=== PATIENT | female | born 1995 | race Caucasian/White ===

== ENCOUNTER 2017-05-23 16:30 | Emergency (ER) | payer OTHER ==
[~2017-05-23] VITALS: Ht 165.1 cm; Wt 65.7 kg
[2017-05-23 16:38] VITALS: TEMP 36.9; Ht 165.1 cm; Wt 65.7 kg
[2017-05-23] MEDS ORDERED: VNTHFA/IN INH (16:47)
[2017-05-23] MEDS ORDERED: LORAZEPAM 1 MG TAB SL STA (16:50)
--- NOTE | 2017-05-23 17:01 | EMERGENCY ROOM VISIT NOTE ---
History Report prepared by Kori: Osbaldo Acosta Under the Supervision of: Dr. Quinn Escoto M.D. First contact with patient: 16:45 Chief Complaint: HEADACHE Stated Complaint: HEADACHE, TIGHT CHEST History of Present Illness The patient is a 22 year old female who presents to the Emergency Room with complaints of persistent anxiety beginning one hour ago. She has a history of anxiety, and has been struggling with it for the past several years. She states that her increased anxiety is due to "personal problems". The patient denies SI. She has been admitted to an inpatient psychiatric facility before in the past with her most recent stay occurring a few months ago. She notes that she has attempted suicide in the past by overdose. The patient notes that she has not been taking her prescribed medication for several months. She notes that she moved to this area about a month ago--she is currently staying in a [facility] [place] [facility]. She denies any recent fevers, cough, or cold-like symptoms. Source of History: patient Onset: One hour ago Quality: other (anxiety) Timing: other (persistent) Associated Symptoms: No fevers, No cough Note: The patient denies cold-like symptoms. Review of Systems See HPI for pertinent positives & negatives. A total of 10 systems reviewed and were otherwise negative. Past Medical & Surgical Medical Problems: (1) Anxiety (2) Asthma Family History No pertinent family history stated. Social History Smoking Status: Never Smoker Occupation Status: employed Current/Historical Medications Scheduled Divalproex Sodium (Depakote Er), 1 TAB PO HS Scheduled PRN Albuterol Hfa (Ventolin Hfa), 2-4 PUFFS INH BID PRN for SOB/Wheezing Hydroxyzine Pamoate (Vistaril), 25 MG PO Q6 PRN for Anxiety/Agitation Allergies Coded Allergies: Sulfamethoxazole w/Trimethoprim (Unverified Adverse Reaction, Intermediate , VOMIT, 05/23/17) Physical Exam Vital Signs Date Time Temp Pulse Resp B/P (MAP) Pulse Ox O2 Delivery O2 Flow Rate FiO2 05/23/17 18:30 82 20 115/76 96 Room Air 05/23/17 16:38 36.9 91 20 110/78 96 Room Air Physical Exam GENERAL: Patient is in no acute distress. HEENT: No acute trauma, normocephalic atraumatic, mucous membranes moist, no nasal congestion, no scleral icterus. NECK: No stridor, no adenopathy, no meningismus, trachea is midline. LUNGS: Clear to auscultation bilaterally, no wheeze, no rhonchi, breath sounds equal. HEART: Without murmurs gallops or rubs, regular rate and rhythm. ABDOMEN: Soft, nontender, bowel sounds positive, no hernias, no peritonitis. EXTREMITIES: No cyanosis or edema, full range of motion of all the joints without pain or difficulty, no signs for acute trauma. NEUROLOGIC: Oriented x 3, no acute motor or sensory deficits, no focal weakness. SKIN: No rash, no jaundice, no diaphoresis. PSYCH: Cooperative. Denies SI. Admits anxiety. Currently voluntary. Medical Decision & Procedures Laboratory Results 05/23/17 17:47 05/23/17 17:47 Test 05/23/17 17:15 05/23/17 17:47 Urine Color YELLOW Urine Appearance CLOUDY (CLEAR) Urine pH 7.5 (4.5-7.5) Urine Specific [place] 1.025 (1.000-1.030) Urine Protein NEG (NEG) Urine Glucose (UA) NEG (NEG) Urine Ketones NEG (NEG) Urine Occult Blood NEG (NEG) Urine Nitrite NEG (NEG) Urine Bilirubin NEG (NEG) Urine Urobilinogen NEG (NEG) Urine Leukocyte Esterase MODERATE (NEG) Urine WBC (Auto) 10-30 /hpf (0-5) Urine RBC (Auto) 0-4 /hpf (0-4) Urine Hyaline Casts (Auto) 1-5 /lpf (0-5) Urine Epithelial Cells (Auto) >30 /lpf (0-5) Urine Bacteria (Auto) 2+ (NEG) Urine Renal Epithelial Cells 5-10 /lpf (0-5) Urine Opiates Screen NEG (NEG) Urine Methadone, Qualitative NEG (NEG) Urine Barbiturates NEG (NEG) Urine Phencyclidine (PCP) Level NEG (NEG) Ur Amphetamine/Methamphetamine NEG (NEG) MDMA (Ecstasy) Screen NEG (NEG) Urine Benzodiazepines Screen NEG (NEG) Urine Cocaine Metabolite NEG (NEG) Urine Marijuana (THC) POS (NEG) Red Blood Count 4.86 M/uL (4.2-5.4) Mean Corpuscular Volume 89.5 fL (80-100) Mean Corpuscular Hemoglobin 30.0 pg (25-34) Mean Corpuscular Hemoglobin Concent 33.6 g/dl (32-36) RDW Standard Deviation 45.7 fL (36.4-46.3) RDW Coefficient of Variation 13.9 % (11.5-14.5) Mean Platelet Volume 9.8 fL (7.4-10.4) Anion Gap 5.0 mmol/L (3-11) Est Creatinine Clear Calc Drug Dose 85.8 ml/min Estimated GFR () 102.3 Estimated GFR (Non- 88.3 BUN/Creatinine Ratio 16.2 (10-20) Calcium Level 9.6 mg/dl (8.5-10.1) Total Bilirubin 0.4 mg/dl (0.2-1) Aspartate Amino Transf (AST/SGOT) 17 U/L (15-37) Alanine Aminotransferase (ALT/SGPT) 18 U/L (12-78) Alkaline Phosphatase 43 U/L (45-117) Total Protein 8.5 gm/dl (6.4-8.2) Albumin 4.3 gm/dl (3.4-5.0) Globulin 4.2 gm/dl (2.5-4.0) Albumin/Globulin Ratio 1.0 (0.9-2) Thyroid Stimulating Hormone (TSH) 0.513 uIu/ml (0.300-4.500) Human Chorionic Gonadotropin, Qual NEG (NEG) Salicylates Level < 1.7 mg/dl (2.8-20) Acetaminophen Level < 2 ug/ml (10-30) Ethyl Alcohol mg/dL < 3.0 mg/dl (0-3) Laboratory results reviewed by me. Medications Administered Medications (Trade) Dose Ordered Sig/Dashawn Route Start Time Stop Time Status Last Admin Dose Admin Lorazepam (Ativan Tab) 1 mg NOW STAT SL 05/23/17 16:50 05/23/17 16:52 DC 05/23/17 17:12 1 MG ED Course 1647: The patient was evaluated in room B5. A complete history and physical exam was performed. 1650: Ordered Ativan Tab 1 mg SL. 1730: I discussed the patients case with the psychiatric casework supervisor. 1830: I spoke with the casework supervisor. She has had a lengthy discussion with the patient. She feels that the patient should stay in the hospital due to concerns of self-harm if discharged. 1840: The patient was moved to room A7 193: I spoke with the casework supervisor. A referral was placed with [facility]. The patient will be evaluated by fermin. 2030: The patient has agreed to discharge home. She will return for worsening symptoms. Discharge instructions were given verbally and on paper. Medical Decision The patient is a 22 year old female who presents to the ED with complaints of headache. Differential diagnoses considered include medication noncompliance, anxiety, depression, situational anxiety, SI, electrolyte imbalance and thyroid disorder. There is no leukocytosis or concerning anemia. No significant electrolyte abnormality, kidney failure, hepatitis. The patient appears to be in a euthyroid state. testing is negative. Urinalysis shows contamination , no obvious infection. Urine tox shows marijuana. Aspirin, Tylenol and alcohol levels were undetectable. The patient presented initially with a headache and then changed her complaint to anxiety. She denied being suicidal. She was willing to be seen by the psychiatry team. The patient was evaluated by the psychiatry services, she does not meet criteria for an inpatient stay. The patient feels safe with discharge home and has decided that she does not want to stay in the hospital. She has agreed to outpatient treatment. Suggestions by psychiatry were made, the patient is to restart her Depakote and will be prescribed Vistaril for acute anxiety. She has agreed to return to this ER if feeling suicidal or worsening. She has contracted for safety. Upon discharge, the patient asked if she could have urine GC and chlamydia testing done. She did not want a pelvic exam. This test was ordered, she can call for the results. She was concerned as she had unprotected sex about a month ago. Medication Reconcilliation Current Medication List: was personally reviewed by me Blood Pressure Screening Patient's blood pressure: Normal blood pressure Blood pressure disposition: Did not require urgent referral Impression Primary Impression: Anxiety Additional Impression: Suicidal ideation Scribe Attestation The scribe's documentation has been prepared under my direction and personally reviewed by me in its entirety. I confirm that the note above accurately reflects all work, treatment, procedures, and medical decision making performed by me. Departure Information Dispostion Home / Self-Care Prescriptions Hydroxyzine Pamoate (VISTARIL) 25 Mg Cap 25 MG PO Q6 Y for Anxiety/Agitation, #12 CAP Prov: Quinn Escoto M.D. 05/23/17 Divalproex Sodium (DEPAKOTE ER) 250 Mg Tab 1 TAB PO HS, #21 TAB 2 Refills take 1 tab daily for 1 week and then start 2 tab daily Prov: Quinn Escoto M.D. 05/23/17 Referrals No Doctor, Assigned (PCP) Patient Instructions My [facility] Problem Qualifiers
[2017-05-23 17:31] LABS: URINE APPEARANCE CLOUDY (CLEAR); URINE BILIRUBIN NEG (NEG); URINE COLOR YELLOW; URINE EPITHELIAL CELL AUTO >30 /lpf (0-5); URINE NITRITE NEG (NEG); URINE PH 7.5 (4.5-7.5); URINE SPECIFIC GRAVITY 1.025 (1.000-1.030); UROBILINOGEN NEG (NEG); ZZUR CULT IF INDIC CLEAN CATCH YES
[2017-05-23 17:35] LABS: MANUAL MICROSCOPIC REQUIRED? NO; REVIEW REQ? YES
[2017-05-23 18:00] LABS: BENZODIAZEPINE, URINE NEG (NEG); COCAINE,URINE NEG (NEG); PHENCYCLIDINE, URINE NEG (NEG)
[2017-05-23 18:06] LABS: HEMATOCRIT 43.5 % (37-47); MEAN CELL VOLUME 89.5 fL (80-100); MEAN CORPUSCULAR HGB CONC 33.6 g/dl (32-36); MEAN PLATELET VOLUME 9.8 fL (7.4-10.4); PLATELET COUNT 286 K/uL (130-400); RED BLOOD COUNT 4.86 M/uL (4.2-5.4); WHITE BLOOD COUNT 9.94 K/uL (4.8-10.8)
[2017-05-23 18:28] LABS: ACETAMINOPHEN < 2 ug/ml (10-30); BUN/CREATININE RATIO 16.2 (10-20); CALCIUM 9.6 mg/dl (8.5-10.1); CREATININE 0.91 mg/dl (0.60-1.20)
[2017-05-23 18:29] LABS: PREG INTERNAL NEGATIVE QC NEG CLEAR BACKGROUND; PREG INTERNAL POSITIVE QC POS CONTROL LINE
[2017-05-23 18:42] LABS: THYROID STIMULATING HORMONE 0.513 uIu/ml (0.300-4.500)
[2017-05-23] MEDS ORDERED: DIVA250T PO (20:26)
[2017-05-23] MEDS ORDERED: HYDR1CAP85 PO (20:26)
--- NOTE | 2017-05-23 21:05 | EMERGENCY ROOM VISIT NOTE ---
ED Visit Note Received this patient signout. Patient is requesting a pelvic exam. She denies being suicidal or homicidal.
[2017-05-23] MEDS ORDERED: DOXYCYCLINE HYCLATE 100 MG CAP PO STA (21:26)
[2017-05-23] MEDS ORDERED: METRONIDAZOLE 250 MG TAB PO STA (21:26)
[2017-05-23] MEDS ORDERED: CEFTRIAXONE SOD 350MG/ML 1 GM VIAL IM STA (21:26)
[2017-05-23] MEDS ORDERED: AZITHROMYCIN 250 MG TAB PO STA (21:26)
[2017-05-23] MEDS ORDERED: METR-163 PO (21:29)
[2017-05-23] MEDS ORDERED: DOXY100C76 PO (21:29)
[2017-05-23 21:55] VITALS: BP 129/88; PULSE 106; O2SAT 96
[2017-05-27 07:51] LABS: CHLAMYDIA TRACH RNA*** NOT DETECTED (NOT DETECTED); GC (NEIS GONORRHOEAE)RNA** NOT DETECTED (NOT DETECTED)
== END 2017-05-23 22:18 | disposition home or self-care (01) ==
LOC: C.EDB 16:32 → C.EDA 22:18
DX: F41.9 Anxiety disorder, unspecified (principal); Z91.5 Personal history of self-harm; J45.909 Unspecified asthma, uncomplicated

== ENCOUNTER 2017-06-19 10:31 | Emergency (ER) | payer OTHER ==
[~2017-06-19] VITALS: Ht 167.6 cm; Wt 66.1 kg
[~2017-06-19 10:31] MED LIST: DIVA250T PO; VNTHFA/IN INH
[2017-06-19 10:51] VITALS: TEMP 37.4; Ht 167.6 cm; Wt 66.1 kg
[2017-06-19] MEDS ORDERED: SODIUM CHLORIDE 0.9% 1000ML 1,000 ML IV STA (11:21)
[2017-06-19] MEDS ORDERED: KETOROLAC TROMETHAMINE 30 MG/ML VIAL IV STA (11:21)
[2017-06-19] MEDS ORDERED: DIAZEPAM INJ 5 MG/ML 2 ML CARP IV STA (11:21)
--- NOTE | 2017-06-19 11:21 | EMERGENCY ROOM VISIT NOTE ---
History First contact with patient: 11:04 Chief Complaint: FLU LIKE SX Stated Complaint: FEVER, SOB, NECK/BACK PAIN History of Present Illness The patient is a 22 year old female who presents to the Emergency Room with complaints of fever, dyspnea, and neck and back pain which began yesterday. The patient states the past few days, she has been experiencing some nasal congestion. She states yesterday, she "began feeling real sick". Patient states she had nausea, headache, chills, severe neck pain, diffuse pain, diarrhea, as well as the congestion. The patient states this morning, she noticed she was running a fever of 100.9F. She has taken 3 doses of Tylenol and congestion medication for the symptoms without improvement. She denies any abdominal pain, cough, coughing up sputum, rhinorrhea, otalgia, sore throat, or swollen glands. She states she does feel some chest tightness when she is breathing, does report a history of asthma. She has been using her albuterol inhalers, which she states helps only minimally. The patient does have a history of meningitis, and states this illness began with similar symptoms, however that time she experienced a sore throat first. The patient states when she was sick with meningitis, her symptoms are significantly worse than they are now. Review of Systems A complete 10 point review of systems was reviewed with the patient with pertinent positives and negatives as per history of present illness. All else were negative. Past Medical/Surgical History Medical Problems: (1) Anxiety (2) Asthma Social History Smoking Status: Never Smoker Smokeless Tobacco Use: No Alcohol Use: none Drug Use: none Marital Status: single Housing Status: lives with family Occupation Status: employed Current/Historical Medications Scheduled Acetaminophen (Tylenol), 325 MG PO UD Cyclobenzaprine Hcl (Flexeril), 5-10 MG PO TID Divalproex Sodium (Depakote Er), 1 TAB PO HS Scheduled PRN Albuterol Hfa (Ventolin Hfa), 2-4 PUFFS INH BID PRN for SOB/Wheezing Physical Exam Vital Signs Date Time Temp Pulse Resp B/P (MAP) Pulse Ox O2 Delivery O2 Flow Rate FiO2 06/19/17 13:03 99 16 122/79 99 Room Air 06/19/17 12:21 94 06/19/17 11:58 103 16 136/75 98 Room Air 06/19/17 11:58 98 Room Air 1/18/18 10:51 37.4 116 16 109/74 95 Room Air Physical Exam VITALS: Vitals are noted on the nurse's note and reviewed by myself. Vital signs stable. GENERAL: This is a 22-year-old white female, in no acute distress, nondiaphoretic, well-developed well-nourished. SKIN: The skin was without rashes, erythema, edema, or bruising. There is no tenting of the skin. Capillary reflex less than 2 seconds. HEAD: Normocephalic atraumatic. EARS: External auditory canals clear, tympanic membranes pearly brown without erythema or effusion bilaterally. EYES: Pupils equal round and reactive to light and accommodation. Conjunctivae without injection, sclerae without icterus. Extraocular movements intact. NOSE: Patent, turbinates with mild inflammation and watery discharge. No sinus tenderness. MOUTH: Mucous membranes moist. Tonsils are not enlarged. Pharynx without erythema or exudate. Uvula midline. Airway patent. Tongue does not deviate. NECK: Supple without nuchal rigidity. No lymphadenopathy. No thyromegaly. Cervical spine is nontender. No JVD. HEART: Regular rate and rhythm without murmurs gallops or rubs. LUNGS: Slightly diminished diffusely, but clear to auscultation bilaterally without wheezes, rales or rhonchi. No dullness to percussion. No retractions or accessory muscle use. ABDOMEN: Positive bowel sounds x 4. Normal tympanic percussion. Soft, nontender, without masses or organomegaly. Grover sign negative. No guarding or rebound tenderness. MUSCULOSKELETAL: No nuchal rigidity noted. The patient does have tenderness with all motion and palpation of the musculature in the neck. Motion did improve with Toradol and Valium. No muscle atrophy, erythema, or edema noted. Full range of motion without joint tenderness in all extremities. No tenderness to palpation. Normal gait. Strength 5/5 throughout. NEURO: Patient was alert and oriented to person place and time. Normal sensation to light and sharp touch. Deep tendon reflexes 2+ throughout. No focal neurological deficits. Medical Decision & Procedures ER Provider Diagnostic Interpretation: CBC is without leukocytosis, anemia, thrombocytopenia. CMP without significant renal, hepatic, or electrolyte abnormalities. Lyme disease testing was negative. Influenza testing was negative. The patient was unable to provide a urine specimen while here in the emergency department. CHEST 2 VIEWS ROUTINE CLINICAL HISTORY: cough, dyspnea dyspnea COMPARISON STUDY: No previous studies for comparison. FINDINGS: The bones soft tissues and hemidiaphragms are normal. The cardiomediastinal silhouette is normal. The lungs are clear. The pulmonary vasculature is normal. IMPRESSION: Negative chest. The above report was generated using voice recognition software. It may contain grammatical, syntax or spelling errors. Electronically signed by: Eduardo Padilla M.D. 06/19/2017 1:36 PM Dictated Date/Time: 06/19/2017 1:36 PM Laboratory Results 06/19/17 11:30 Red Blood Count 4.79, Mean Corpuscular Volume 89.4, Mean Corpuscular Hemoglobin 30.1, Mean Corpuscular Hemoglobin Concent 33.6, Mean Platelet Volume 9.9, Neutrophils (%) (Auto) 73.1, Lymphocytes (%) (Auto) 14.1, Monocytes (%) (Auto) 10.2, Eosinophils (%) (Auto) 1.7, Basophils (%) (Auto) 0.7, Neutrophils # (Auto ) 6.43, Lymphocytes # (Auto) 1.24, Monocytes # (Auto) 0.90, Eosinophils # (Auto ) 0.15, Basophils # (Auto) 0.06 06/19/17 11:30 Test 06/19/17 11:20 06/19/17 11:30 06/19/17 11:40 Influenza Type A Antigen Neg for Influ A (NEG) Influenza Type B Antigen Neg for Influ B (NEG) White Blood Count 8.80 K/uL (4.8-10.8) Red Blood Count 4.79 M/uL (4.2-5.4) Hemoglobin 14.4 g/dL (12.0-16.0) Hematocrit 42.8 % (37-47) Mean Corpuscular Volume 89.4 fL (80-100) Mean Corpuscular Hemoglobin 30.1 pg (25-34) Mean Corpuscular Hemoglobin Concent 33.6 g/dl (32-36) Platelet Count 282 K/uL (130-400) Mean Platelet Volume 9.9 fL (7.4-10.4) Neutrophils (%) (Auto) 73.1 % Lymphocytes (%) (Auto) 14.1 % Monocytes (%) (Auto) 10.2 % Eosinophils (%) (Auto) 1.7 % Basophils (%) (Auto) 0.7 % Neutrophils # (Auto) 6.43 K/uL (1.4-6.5) Lymphocytes # (Auto) 1.24 K/uL (1.2-3.4) Monocytes # (Auto) 0.90 K/uL (0.11-0.59) Eosinophils # (Auto) 0.15 K/uL (0-0.5) Basophils # (Auto) 0.06 K/uL (0-0.2) RDW Standard Deviation 47.7 fL (36.4-46.3) RDW Coefficient of Variation 14.5 % (11.5-14.5) Immature Granulocyte % (Auto) 0.2 % Immature Granulocyte # (Auto) 0.02 K/uL (0.00-0.02) Anion Gap 8.0 mmol/L (3-11) Est Creatinine Clear Calc Drug Dose 104.0 ml/min Estimated GFR () 123.3 Estimated GFR (Non- 106.4 BUN/Creatinine Ratio 12.1 (10-20) Calcium Level 9.1 mg/dl (8.5-10.1) Total Bilirubin 0.5 mg/dl (0.2-1) Aspartate Amino Transf (AST/SGOT) 17 U/L (15-37) Alanine Aminotransferase (ALT/SGPT) 17 U/L (12-78) Alkaline Phosphatase 41 U/L (45-117) Total Protein 8.3 gm/dl (6.4-8.2) Albumin 4.1 gm/dl (3.4-5.0) Globulin 4.2 gm/dl (2.5-4.0) Albumin/Globulin Ratio 1.0 (0.9-2) Lyme Disease IgG Antibody NEG (NEG) Lyme Disease IgM Antibody NEG (NEG) Lactic Acid Level 0.8 mmol/L (0.4-2.0) Medications Administered Medications (Trade) Dose Ordered Sig/Dashawn Route Start Time Stop Time Status Last Admin Dose Admin Sodium Chloride 1,000 ml @ 999 mls/hr Q1H1M STAT IV 06/19/17 11:21 06/19/17 12:21 DC 06/19/17 12:09 999 MLS/HR Ketorolac Tromethamine (Toradol Inj) 30 mg NOW STAT IV 06/19/17 11:21 06/19/17 11:25 DC 06/19/17 12:09 30 MG Diazepam (Valium Inj) 2 mg NOW STAT IV 06/19/17 11:21 06/19/17 11:25 DC 06/19/17 12:09 2 MG ECG Indication: SOB/dyspnea, tachycardia Rate (beats per minute): 99 Rhythm: normal sinus Findings: no acute ischemic change Comparison ECG Date: no prior available ED Course The patient was seen and evaluated as above. IV access obtained, labs drawn. The patient was given 30 mg Toradol and 2 mg Valium IV. Labs and imaging were reviewed. I discussed the case with Dr. Escoto. Dr. Escoto did see and evaluate the patient independently. I discussed all findings with the patient at bedside. Based on her neck pain, I do suspect musculoskeletal etiology, however with her history of meningitis, she was offered lumbar puncture. The patient states she does not wish to have a lumbar puncture performed. Discharge instructions were reviewed, and patient was given specific return precautions for any worsening symptoms. The patient was discharged home in good condition. Medical Decision Differential diagnosis includes influenza, influenza-like syndrome, meningitis, strep pharyngitis, upper respiratory infection, pneumonia, bronchitis, Lyme disease, musculoskeletal, malignancy, and others This is a 22-year-old white female who presents to the emergency department today complaining of flulike symptoms. She is primarily concerned due to a severely stiff neck. The patient does not have any tenderness on palpation of the cervical spine, however she does have discomfort laterally and with the muscles. I do suspect an inflammatory, musculoskeletal etiology of the patient' s neck pain, however meningitis is certainly in the differential due to patient' s previous history and complaints. Lab work was overall negative, and the patient did not have an elevated white blood cell count and was afebrile while here in the emergency department. Chest x-ray was normal, did not reveal any pneumonia. I suspect an influenza-like syndrome, if not influenza. The patient will be treated supportively/symptomatically and return for significantly worsening symptoms. Medication Reconcilliation Current Medication List: was personally reviewed by me Blood Pressure Screening Patient's blood pressure: Normal blood pressure Impression Primary Impression: Influenza-like symptoms Additional Impression: Musculoskeletal neck pain Departure Information Dispostion Home / Self-Care Condition GOOD Prescriptions Cyclobenzaprine Hcl (FLEXERIL) 5 Mg Tab 5-10 MG PO TID, #30 TAB PRN Prov: Velma Mitchell, JENNIFER 06/19/17 Referrals No Doctor, Assigned (PCP) [facility]ructions [facility] Additional Instructions You were seen and evaluated in the emergency department today for an upper respiratory infection. I do feel that based on your symptoms, and the duration of illness, this is likely viral in nature. As discussed, antibiotics will not treat viral illness. You are experiencing some pretty severe neck pain. This appears to be musculoskeletal in nature, however, if symptoms worsen, you experience severe pain or stiffness, or other meningeal symptoms as you have experienced in the past, return immediately to the ED. Continue to use your albuterol inhaler to use for wheezing or difficulty breathing. Use this inhaler 1-2 puffs every 4-6 hours as needed. If you find that your symptoms are not improving with the use of the inhaler, or if you find that you need to use the inhaler longer than 1 week, return to the ED or follow-up with your PCP. For your sore throat, you may use a 1:1 mixture of liquid Benadryl and liquid Maalox. Gargle and spit this mixture. It will help to soothe the throat and provide some relief. Drink warm tea with honey and lemon, as this will also help to soothe the throat. Gargle with salt water frequently. As discussed, you should take OTC Mucinex and/or Sudafed for your symptoms. Please do not exceed the recommended daily dosages. Ibuprofen(Motrin, Advil) may be used for fever or pain. Use 600mg every six hours as needed. Take with food. Avoid using more than 2400mg in a 24 hour period. Do not use 2400mg per day for more than three consecutive days without physician direction. Prolonged inappropriate use can lead to stomach upset or ulcers. You may take Naproxen 1-2 tablets twice daily in place of ibuprofen. This medication will help with the swelling in your sinuses. (AND/OR) Acetaminophen(Tylenol) may be used for fever or pain. Use 1000mg every six hours as needed. Avoid using more than 3000mg in a 24 hour period. *You may alternate these medications every 3-4 hours for increased pain/fever control. You have been prescribed Flexeril (cyclobenzaprine) 1-2 tabs orally, three times per day. Do NOT exceed 30 mg (6 tabs) per day. Take your first dose at bedtime as it can make you drowsy. Always take all medications as prescribed. For congestion, you may use Flonase OTC. You may want to consider zinc, echinacea, and vitamin C to help boost your immunity. Please get plenty of rest and drink plenty of fluids. While influenza testing was negative, I suspect an influenza-like illness. You may feel sick for 10-14 days. Please return or follow-up with your PCP in 1 week if you are not experiencing any improvement in your symptoms. Return to the emergency department for coughing up blood, difficulty breathing, chest pain, worsening symptoms, or for other concerns. Work Instructions Return To Work: 3 days Problem Qualifiers
[2017-06-19 11:58] VITALS: O2SAT 98
[2017-06-19 12:22] LABS: INFLUENZA B ANTIGEN Neg for Influ B (NEG)
[2017-06-19] MEDS ORDERED: ACET-1311 PO (12:25)
[2017-06-19] MEDS ORDERED: DIVA250T PO (12:25)
[2017-06-19 12:36] LABS: ALBUMIN 4.1 gm/dl (3.4-5.0); CALCIUM 9.1 mg/dl (8.5-10.1); CREATININE 0.78 mg/dl (0.60-1.20); POTASSIUM 3.6 mmol/L (3.5-5.1)
[2017-06-19 12:39] LABS: TOTAL PROTEIN 8.3 gm/dl (6.4-8.2)
[2017-06-19 13:02] LABS: BASO % 0.7 %; BASO ABS # 0.06 K/uL (0-0.2); EOS % 1.7 %; EOS ABS # 0.15 K/uL (0-0.5); HEMATOCRIT 42.8 % (37-47); HEMOGLOBIN 14.4 g/dL (12.0-16.0); IG# 0.02 K/uL (0.00-0.02); LYMPH % 14.1 %; LYMPH ABS # 1.24 K/uL (1.2-3.4); MEAN CELL VOLUME 89.4 fL (80-100); MEAN CORPUSCULAR HEMOGLOBIN 30.1 pg (25-34); MEAN CORPUSCULAR HGB CONC 33.6 g/dl (32-36); MEAN PLATELET VOLUME 9.9 fL (7.4-10.4); MONO % 10.2 %; NEUT % 73.1 %; NEUT ABS # 6.43 K/uL (1.4-6.5); PLATELET COUNT 282 K/uL (130-400); RED CELL DISTRIBUTION WIDTH CV 14.5 % (11.5-14.5); RED CELL DISTRIBUTION WIDTH SD 47.7 fL (36.4-46.3)
--- NOTE | 2017-06-19 13:37 | DIAGNOSTIC IMAGING REPORT ---
CHEST 2 VIEWS ROUTINE CLINICAL HISTORY: cough, dyspnea dyspnea COMPARISON STUDY: No previous studies for comparison. FINDINGS: The bones soft tissues and hemidiaphragms are normal. The cardiomediastinal silhouette is normal. The lungs are clear. The pulmonary vasculature is normal. IMPRESSION: Negative chest. The above report was generated using voice recognition software. It may contain grammatical, syntax or spelling errors. Electronically signed by: Eduardo Padilla M.D. 06/19/2017 1:36 PM Dictated Date/Time: 06/19/2017 1:36 PM
[2017-06-19] MEDS ORDERED: CYCL5TAB PO (13:52)
[2017-06-19 14:26] VITALS: BP 102/73; PULSE 90; O2SAT 96
== END 2017-06-19 14:27 | disposition home or self-care (01) ==
LOC: C.EDB 10:32 → C.EDA 14:27
DX: R50.9 Fever, unspecified (principal); R06.02 Shortness of breath; M54.2 Cervicalgia; R09.81 Nasal congestion; R11.0 Nausea; R07.89 Other chest pain; J45.909 Unspecified asthma, uncomplicated